=== PATIENT | female | born 1995 | race Caucasian/White ===

== ENCOUNTER 2021-02-23 12:35 | Emergency (ER) | payer SELFPAY ==
[~2021-02-23] VITALS: Ht 172.7 cm; Wt 117.9 kg
[~2021-02-23 12:35] MED LIST: ASPIRIN325 MG PO; KEFLEX250 MG/5 M PO
[2021-02-23 13:44] LABS: CLARITY TURBID (CLEAR); COLOR YELLOW (YELLOW)
[2021-02-23 13:45] LABS: BASOPHIL 0.3 % (0-2); EOSINOPHIL 0.6 % (0-5); HCT 43.8 % (37.0-47.0); HGB 14.3 g/dl (12.5-16.0); LYMPHOCYTE 23.5 % (15-48); MCH 29.3 pg (25.0-31.0); MCHC 32.6 g/dL (32.0-36.0); MCV 89.8 fL (78.0-100.0); MONOCYTE 6.4 % (0-12); MPV 9.8 fL (6.0-9.5); NEUTROPHIL 68.6 % (41-80); NRBC 0; PLT 329 K/uL (150-400); RBC 4.88 M/uL (4.20-5.40); RDW 12.8 % (11.5-14.0); WBC 12.7 K/uL (4.0-10.5)
[2021-02-23 13:46] LABS: BILIRUBIN NEGATIVE (NEGATIVE); BLOOD 3+ Ery/uL (NEGATIVE); GLUCOSE (U) NORMAL (NORMAL); PROTEIN 3+ mg/dL (NEGATIVE); UROBILINOGEN 0.2 mg/dL (0.2-1.0)
[2021-02-23 13:47] LABS: LEUKOCYTES 3+ Leu/uL (NEGATIVE); NITRITE POSITIVE (NEGATIVE)
[2021-02-23 14:05] LABS: BACTERIA 3+; URINARY RBC 20-50; URINARY WBC TNTC
[2021-02-23 14:11] LABS: ALBUMIN 3.7 g/dL (3.4-5.0); BILIRUBIN - TOTAL 0.6 mg/dL (0.2-1.0); BUN/CREAT RATIO (CALC) 16.1 RATIO; CREATININE 0.56 mg/dL (0.51-0.95); POTASSIUM 4.7 mmol/L (3.5-5.1); TOTAL PROTEIN 7.7 g/dL (6.4-8.2)
[2021-02-23] MEDS ORDERED: CIPRO500 MG PO (14:51)
[2021-02-23] MEDS ORDERED: HYDROCODON-ACE1 EAC2 PO (14:51)
[2021-02-23] MEDS ORDERED: ONDANSETRON ODT4 MG PO (14:51)
== END 2021-02-23 15:16 | disposition home or self-care (01) ==
LOC: FER 12:35
PROVIDERS: Internal Medicine
DX: N13.6 Pyonephrosis (principal); N30.90 Cystitis, unspecified without hematuria
CPT/HCPCS: 36415; 80053; 81001; 85025; 87076; 87088; 87186; J0696; J1170; J2405